=== PATIENT | male | born 1965 | race Caucasian/White ===

== ENCOUNTER 2017-02-27 09:15 | Emergency (ER) | payer MEDICARE ==
[~2017-02-27] VITALS: Ht 182.9 cm; Wt 155.1 kg
[~2017-02-27 09:15] MED LIST: ALBU90OI61 INH; ATOR10; ATOR40TA PO; Aspirin EC81 MG PO; BENZ100A PO; CEPH500 PO; CYCL10 PO; FAMO40 PO; GABA100 PO; GABA300 PO; GEMF600 PO; HYDACE5 PO; HYDCHL25 PO; IBUP800 PO; LISI20 PO; METF500 PO; METF500C; METO25ER PO; MORP15ER PO; MORP30 PO; MORP30ER PO; MORP60ER PO; NAPR500 PO; NITR.4SL SL; OXYC10TA19 PO; OXYC15ER PO; OXYC30 PO; OXYC5 PO; Oxycodone HCl20 M1 PO; Oxycontin20 MG PO; PANT40 PO; PRED20 PO; PREG25 PO; Percocet 5-3251 EACH PO; SULTRIDS PO; TIZANIDINE HCL4 MG PO; Vibramycin100 MG PO
[2017-02-27 10:09] LABS: BASOPHILS ABSOLUTE AUTO 0.01 K/mm3 (0.00-0.23); BASOPHILS PERCENT AUTO 0 % (0-2); EOSINOPHILS PERCENT AUTO 4 % (0-6); Hematocrit 45.1 % (37.0-53.0); IMMATURE GRAN ABSOLUTE AUTO 0.01 K/mm3 (0.00-0.10); IMMATURE GRAN PERCENT AUTO 0 % (0-1); LYMPHOCYTES ABSOLUTE AUTO 2.96 K/mm3 (0.84-5.20); LYMPHOCYTES PERCENT AUTO 38 % (21-46); MONOCYTES PERCENT AUTO 11 % (4-13); Mean Corpuscular HGB Conc 33.3 g/dL (31.5-36.5); Mean Corpuscular Volume 87 fL (80-100); NEUTROPHILS ABSOLUTE AUTO 3.69 K/mm3 (1.96-9.15); NEUTROPHILS PERCENT AUTO 47 % (41-73); Platelet Count 212 K/mm3 (150-400); RDW Coefficient Variation 13.7 % (11.7-14.2); RDW Standard Deviation 43.6 fL (35.1-46.3); Red Blood Cell Count 5.18 M/mm3 (4.30-5.90); White Blood Cell Count 7.87 K/mm3 (4.00-11.30)
[2017-02-27 10:33] LABS: Alanine Aminotransfer (ALT/SGP 418 U/L (12-78); Albumin, Blood 3.5 g/dL (3.4-5.0); Albumin/Globulin Ratio 0.8 (0.8-1.8); Alk Phos 97 U/L (50-136); Anion Gap 9 mmol/L (6-16); Aspartate Aminotrans (AST/SGOT 111 U/L (12-37); Bilirubin, Total 1.5 mg/dL (0.1-1.0); Blood Urea Nitrogen 16 mg/dL (8-24); Bun/Creatinine Ratio 18.3 (12.0-20.0); CO2, Blood 25 mmol/L (21-32); Calcium, Blood 8.6 mg/dL (8.5-10.1); Chloride, Blood 99 mmol/L (98-108); Creatinine, Blood 0.88 mg/dL (0.60-1.20); Globulin, Blood 4.2 g/dL (2.2-4.0); Glomerular Filtration Rate >60 (60-); Glucose, Blood 224 mg/dL (70-99); Potassium, Blood 3.8 mmol/L (3.5-5.5); Sodium, Blood 133 mmol/L (136-145); Total Protein, Blood 7.7 g/dL (6.4-8.2)
[2017-08-03] MEDS ORDERED: OXYC15ER PO (09:22)
[2017-08-03] MEDS ORDERED: IBUP800 PO (09:22)
[2017-08-03] MEDS ORDERED: Stool Softener100 MG PO (09:23)
[2017-08-03] MEDS ORDERED: PROM25S PR (09:23)
[2017-08-03] MEDS ORDERED: Cymbalta30 MG (09:23)
[2018-01-01] MEDS ORDERED: Roxicodone15 MG PO (16:31)
[2018-01-01] MEDS ORDERED: Metformin HCl500 MG PO (16:31)
[2018-01-01] MEDS ORDERED: Indomethacin50 MG PO (19:46)
== END 2017-02-27 13:03 | disposition home or self-care (01) ==
LOC: ER 09:15
PROVIDERS: Physician Assistant
DX: R11.2 Nausea with vomiting, unspecified (principal); K76.0 Fatty (change of) liver, not elsewhere classified; R63.0 Anorexia; R63.4 Abnormal weight loss; Z68.42 Body mass index [BMI] 45.0-49.9, adult; Z79.899 Other long term (current) drug therapy; Z79.84 Long term (current) use of oral hypoglycemic drugs; Z79.82 Long term (current) use of aspirin; I10 Essential (primary) hypertension; R73.03 Prediabetes; F17.220 Nicotine dependence, chewing tobacco, uncomplicated
CPT/HCPCS: 36415; 76700; 80053; 81000; 83690; 85025; 86704; 86708; 86803; 87340; 96360; 99283; J7030

== ENCOUNTER 2017-03-07 11:09 | Day surgery (SDC) | payer MEDICARE ==
[~2017-03-07] VITALS: Ht 182.9 cm; Wt 156.7 kg
[2017-08-03] MEDS ORDERED: IBUP800 PO (09:22)
[2017-08-03] MEDS ORDERED: OXYC15ER PO (09:22)
[2017-08-03] MEDS ORDERED: PROM25S PR (09:23)
[2017-08-03] MEDS ORDERED: Cymbalta30 MG (09:23)
[2017-08-03] MEDS ORDERED: Stool Softener100 MG PO (09:23)
[2018-01-01] MEDS ORDERED: Metformin HCl500 MG PO (16:31)
[2018-01-01] MEDS ORDERED: Roxicodone15 MG PO (16:31)
[2018-01-01] MEDS ORDERED: Indomethacin50 MG PO (19:46)
== END 2017-03-07 13:20 | disposition home or self-care (01) ==
LOC: ORSCSDS 11:09
DX: R10.13 Epigastric pain (principal); R63.4 Abnormal weight loss; R11.2 Nausea with vomiting, unspecified; K29.70 Gastritis, unspecified, without bleeding; K31.7 Polyp of stomach and duodenum; I10 Essential (primary) hypertension; E11.9 Type 2 diabetes mellitus without complications; I25.10 Atherosclerotic heart disease of native coronary artery without angina pectoris; E66.01 Morbid (severe) obesity due to excess calories; Z68.42 Body mass index [BMI] 45.0-49.9, adult; F17.220 Nicotine dependence, chewing tobacco, uncomplicated; Z79.899 Other long term (current) drug therapy
CPT/HCPCS: 82947; 88305; 88342; J2250

== ENCOUNTER 2017-04-21 10:55 | Day surgery (SDC) | payer MEDICARE ==
[~2017-04-21] VITALS: Ht 182.9 cm; Wt 149.2 kg
[2017-08-03] MEDS ORDERED: IBUP800 PO (09:22)
[2017-08-03] MEDS ORDERED: OXYC15ER PO (09:22)
[2017-08-03] MEDS ORDERED: PROM25S PR (09:23)
[2017-08-03] MEDS ORDERED: Cymbalta30 MG (09:23)
[2017-08-03] MEDS ORDERED: Stool Softener100 MG PO (09:23)
[2018-01-01] MEDS ORDERED: Metformin HCl500 MG PO (16:31)
[2018-01-01] MEDS ORDERED: Roxicodone15 MG PO (16:31)
[2018-01-01] MEDS ORDERED: Indomethacin50 MG PO (19:46)
== END 2017-04-21 14:00 | disposition home or self-care (01) ==
LOC: ORSCSDS 10:55
PROVIDERS: Internal Medicine Gastroenterology
PROC: 0DBK8ZX Excision of Ascending Colon, Via Natural or Artificial Opening Endoscopic, Diagnostic (ICD-10-PCS; principal; 2017-04-21 12:30)
PROC: 0DBP8ZX Excision of Rectum, Via Natural or Artificial Opening Endoscopic, Diagnostic (ICD-10-PCS; principal; 2017-04-21 12:30)
PROC: 0DBL8ZX Excision of Transverse Colon, Via Natural or Artificial Opening Endoscopic, Diagnostic (ICD-10-PCS; principal; 2017-04-21 12:30)
DX: R63.4 Abnormal weight loss (principal); K62.1 Rectal polyp; D12.8 Benign neoplasm of rectum; D12.3 Benign neoplasm of transverse colon; K63.5 Polyp of colon; R10.13 Epigastric pain; R11.2 Nausea with vomiting, unspecified; I10 Essential (primary) hypertension; E11.9 Type 2 diabetes mellitus without complications; E78.5 Hyperlipidemia, unspecified; I25.10 Atherosclerotic heart disease of native coronary artery without angina pectoris; F17.220 Nicotine dependence, chewing tobacco, uncomplicated; F32.9 Major depressive disorder, single episode, unspecified; Z79.4 Long term (current) use of insulin; Z79.899 Other long term (current) drug therapy; E66.01 Morbid (severe) obesity due to excess calories; Z68.42 Body mass index [BMI] 45.0-49.9, adult
CPT/HCPCS: 82947; 88305; J2250; J7120

== ENCOUNTER 2017-09-07 12:53 | Day surgery (SDC) | payer MEDICARE ==
[~2017-09-07] VITALS: Ht 182.9 cm; Wt 151.6 kg
[~2017-09-07 12:53] MED LIST changes: +Cymbalta30 MG; +PROM25S PR; +Stool Softener100 MG PO
== END 2017-09-07 15:55 | disposition home or self-care (01) ==
LOC: ORSCSDS 12:53
PROVIDERS: Internal Medicine Gastroenterology
PROC: 0DBP8ZX Excision of Rectum, Via Natural or Artificial Opening Endoscopic, Diagnostic (ICD-10-PCS; principal; 2017-09-07 14:30)
PROC: 3E0H8GC Introduction of Other Therapeutic Substance into Lower GI, Via Natural or Artificial Opening Endoscopic (ICD-10-PCS; principal; 2017-09-07 14:30)
DX: C20 Malignant neoplasm of rectum (principal); D12.8 Benign neoplasm of rectum; Z86.010 Personal history of colon polyps; I10 Essential (primary) hypertension; Z79.899 Other long term (current) drug therapy; Z79.82 Long term (current) use of aspirin; F17.220 Nicotine dependence, chewing tobacco, uncomplicated
CPT/HCPCS: 82947; 88305; J2250

== ENCOUNTER 2017-09-11 20:20 | Observation (INO) | payer MEDICARE ==
[~2017-09-11] VITALS: Ht 182.9 cm; Wt 155.1 kg
[2017-09-11 20:56] LABS: BASOPHILS ABSOLUTE AUTO 0.02 K/mm3 (0.00-0.23); BASOPHILS PERCENT AUTO 0 % (0-2); EOSINOPHILS ABSOLUTE AUTO 0.16 K/mm3 (0.00-0.68); EOSINOPHILS PERCENT AUTO 2 % (0-6); Hematocrit 43.3 % (37.0-53.0); Hemoglobin 14.5 g/dL (13.5-17.5); IMMATURE GRAN ABSOLUTE AUTO 0.02 K/mm3 (0.00-0.10); IMMATURE GRAN PERCENT AUTO 0 % (0-1); LYMPHOCYTES ABSOLUTE AUTO 3.78 K/mm3 (0.84-5.20); LYMPHOCYTES PERCENT AUTO 49 % (21-46); MONOCYTES ABSOLUTE AUTO 0.73 K/mm3 (0.16-1.47); MONOCYTES PERCENT AUTO 9 % (4-13); Mean Corpuscular HGB 29.6 pg (26.0-34.0); Mean Corpuscular HGB Conc 33.5 g/dL (31.5-36.5); Mean Corpuscular Volume 88 fL (80-100); Mean Platelet Volume 10.8 fL (9.1-12.4); NEUTROPHILS ABSOLUTE AUTO 3.03 K/mm3 (1.96-9.15); NEUTROPHILS PERCENT AUTO 39 % (41-73); Platelet Count 219 K/mm3 (150-400); RDW Coefficient Variation 12.3 % (11.7-14.2); White Blood Cell Count 7.74 K/mm3 (4.00-11.30)
[2017-09-11 21:18] LABS: Alanine Aminotransfer (ALT/SGP 35 U/L (12-78); Albumin, Blood 3.7 g/dL (3.4-5.0); Albumin/Globulin Ratio 1.1 (0.8-1.8); Alk Phos 63 U/L (50-136); Anion Gap 10 mmol/L (6-16); Aspartate Aminotrans (AST/SGOT 21 U/L (12-37); Bilirubin, Total 0.3 mg/dL (0.1-1.0); Blood Urea Nitrogen 12 mg/dL (8-24); Bun/Creatinine Ratio 13.3 (12.0-20.0); CO2, Blood 25 mmol/L (21-32); Calcium, Blood 8.3 mg/dL (8.5-10.1); Chloride, Blood 105 mmol/L (98-108); Globulin, Blood 3.5 g/dL (2.2-4.0); Glomerular Filtration Rate >60 (60-); Glucose, Blood 204 mg/dL (70-99); Potassium, Blood 4.1 mmol/L (3.5-5.5); Sodium, Blood 140 mmol/L (136-145); Total Protein, Blood 7.2 g/dL (6.4-8.2); Troponin I 0.023 ng/mL (0.000-0.040)
[2017-09-12 02:41] LABS: Troponin I 0.024 ng/mL (0.000-0.040)
[2017-09-12 05:48] LABS: Hematocrit 42.7 % (37.0-53.0); Hemoglobin 14.1 g/dL (13.5-17.5); Mean Corpuscular HGB 29.3 pg (26.0-34.0); Mean Corpuscular Volume 89 fL (80-100); Mean Platelet Volume 11.2 fL (9.1-12.4); Platelet Count 212 K/mm3 (150-400); RDW Coefficient Variation 12.5 % (11.7-14.2); RDW Standard Deviation 40.6 fL (35.1-46.3); Red Blood Cell Count 4.81 M/mm3 (4.30-5.90); White Blood Cell Count 7.28 K/mm3 (4.00-11.30)
[2017-09-12 06:12] LABS: Alanine Aminotransfer (ALT/SGP 35 U/L (12-78); Albumin, Blood 3.6 g/dL (3.4-5.0); Albumin/Globulin Ratio 1.1 (0.8-1.8); Alk Phos 55 U/L (50-136); Anion Gap 8 mmol/L (6-16); Aspartate Aminotrans (AST/SGOT 18 U/L (12-37); Bilirubin, Total 0.6 mg/dL (0.1-1.0); Blood Urea Nitrogen 12 mg/dL (8-24); Bun/Creatinine Ratio 12.5 (12.0-20.0); CO2, Blood 26 mmol/L (21-32); Calcium, Blood 8.8 mg/dL (8.5-10.1); Chloride, Blood 106 mmol/L (98-108); Creatinine, Blood 0.96 mg/dL (0.60-1.20); Globulin, Blood 3.4 g/dL (2.2-4.0); Glomerular Filtration Rate >60 (60-); Glucose, Blood 119 mg/dL (70-99); Potassium, Blood 4.1 mmol/L (3.5-5.5); Sodium, Blood 140 mmol/L (136-145)
[2017-09-12 10:38] LABS: CPK Creatine Kinase 114 U/L (39-308); Troponin I <0.015 ng/mL (0.000-0.040)
[2017-09-13] MEDS ORDERED: NITR.4SL SL (11:23)
[2017-09-13] MEDS ORDERED: Isosorbide Mono30 MG PO (11:25)
== END 2017-09-13 12:04 | disposition home or self-care (01) ==
LOC: ER 20:20 → ERHOLD 20:21 → ICUE 20:21
PROVIDERS: Emergency Medicine; Internal Medicine
DX: R07.9 Chest pain, unspecified (principal); E11.9 Type 2 diabetes mellitus without complications; E66.9 Obesity, unspecified; I10 Essential (primary) hypertension; E78.5 Hyperlipidemia, unspecified; M54.9 Dorsalgia, unspecified; Z79.84 Long term (current) use of oral hypoglycemic drugs; Z79.82 Long term (current) use of aspirin; Z79.1 Long term (current) use of non-steroidal anti-inflammatories (NSAID); Z79.899 Other long term (current) drug therapy
CPT/HCPCS: 36415; 71046; 80053; 82550; 82947; 83880; 84484; 85025; 85027; 93005; 93010; 93454; 96360; 96361; 96372; 99152; 99153; 99285-25; C1769; C1894; G0378; J1644; J1650; J2250; J3010; J7030; Q9967

== ENCOUNTER 2018-03-02 11:49 | Day surgery (SDC) | payer MEDICARE ==
[~2018-03-02] VITALS: Ht 182.9 cm; Wt 157.5 kg
[~2018-03-02 11:49] MED LIST changes: +DOCU100 PO; +Indomethacin50 MG PO; +Isosorbide Mono30 MG PO; +Metformin HCl500 MG PO; +ROSU10TA PO; +Roxicodone15 MG PO
== END 2018-03-02 14:39 | disposition home or self-care (01) ==
LOC: ORSCSDS 11:49
PROVIDERS: Internal Medicine Gastroenterology
PROC: 0DBP8ZX Excision of Rectum, Via Natural or Artificial Opening Endoscopic, Diagnostic (ICD-10-PCS; principal; 2018-03-02 13:00)
PROC: 0DBL8ZX Excision of Transverse Colon, Via Natural or Artificial Opening Endoscopic, Diagnostic (ICD-10-PCS; principal; 2018-03-02 13:00)
PROC: 0D5P8ZZ Destruction of Rectum, Via Natural or Artificial Opening Endoscopic (ICD-10-PCS; principal; 2018-03-02 13:00)
PROC: 0DBK8ZX Excision of Ascending Colon, Via Natural or Artificial Opening Endoscopic, Diagnostic (ICD-10-PCS; principal; 2018-03-02 13:00)
DX: Z85.048 Personal history of other malignant neoplasm of rectum, rectosigmoid junction, and anus (principal); Z86.010 Personal history of colon polyps; D12.3 Benign neoplasm of transverse colon; K63.5 Polyp of colon; K62.1 Rectal polyp; K57.30 Diverticulosis of large intestine without perforation or abscess without bleeding; K64.8 Other hemorrhoids; Q27.33 Arteriovenous malformation of digestive system vessel; I10 Essential (primary) hypertension; I25.10 Atherosclerotic heart disease of native coronary artery without angina pectoris; F17.220 Nicotine dependence, chewing tobacco, uncomplicated
CPT/HCPCS: 82947; 88305; J2250; J7120

== ENCOUNTER 2018-09-14 11:26 | Day surgery (SDC) | payer MEDICARE ==
[~2018-09-14] VITALS: Ht 182.9 cm; Wt 162.5 kg
[2018-09-14] MEDS ORDERED: ATOR20 (12:17)
== END 2018-09-14 14:56 | disposition home or self-care (01) ==
LOC: ORSCSDS 11:26
PROVIDERS: Internal Medicine Gastroenterology
PROC: 0DBL8ZX Excision of Transverse Colon, Via Natural or Artificial Opening Endoscopic, Diagnostic (ICD-10-PCS; principal; 2018-09-14 13:00)
PROC: 0DBN8ZX Excision of Sigmoid Colon, Via Natural or Artificial Opening Endoscopic, Diagnostic (ICD-10-PCS; principal; 2018-09-14 13:00)
PROC: 0DBP8ZX Excision of Rectum, Via Natural or Artificial Opening Endoscopic, Diagnostic (ICD-10-PCS; principal; 2018-09-14 13:00)
DX: Z85.048 Personal history of other malignant neoplasm of rectum, rectosigmoid junction, and anus (principal); D12.3 Benign neoplasm of transverse colon; D12.5 Benign neoplasm of sigmoid colon; K62.1 Rectal polyp; K57.30 Diverticulosis of large intestine without perforation or abscess without bleeding; K64.8 Other hemorrhoids; Z86.010 Personal history of colon polyps; I10 Essential (primary) hypertension; I25.10 Atherosclerotic heart disease of native coronary artery without angina pectoris; E11.9 Type 2 diabetes mellitus without complications; G47.33 Obstructive sleep apnea (adult) (pediatric); Z79.84 Long term (current) use of oral hypoglycemic drugs; Z79.899 Other long term (current) drug therapy; F17.220 Nicotine dependence, chewing tobacco, uncomplicated
CPT/HCPCS: 82947; 88305; J2704; J7120

== ENCOUNTER 2018-10-01 12:43 | Emergency (ER) | payer MEDICARE ==
[~2018-10-01] VITALS: Ht 182.9 cm; Wt 117.9 kg
[~2018-10-01 12:43] MED LIST changes: +ATOR20
[2018-10-01 13:19] LABS: BASOPHILS ABSOLUTE AUTO 0.03 K/mm3 (0.00-0.23); BASOPHILS PERCENT AUTO 0 % (0-2); EOSINOPHILS ABSOLUTE AUTO 0.16 K/mm3 (0.00-0.68); EOSINOPHILS PERCENT AUTO 2 % (0-6); Hematocrit 45.5 % (37.0-53.0); Hemoglobin 15.2 g/dL (13.5-17.5); IMMATURE GRAN ABSOLUTE AUTO 0.03 K/mm3 (0.00-0.10); IMMATURE GRAN PERCENT AUTO 0 % (0-1); LYMPHOCYTES PERCENT AUTO 46 % (21-46); MONOCYTES ABSOLUTE AUTO 1.03 K/mm3 (0.16-1.47); MONOCYTES PERCENT AUTO 12 % (4-13); Mean Corpuscular HGB 30.3 pg (26.0-34.0); Mean Corpuscular HGB Conc 33.4 g/dL (31.5-36.5); Mean Corpuscular Volume 91 fL (80-100); Mean Platelet Volume 10.9 fL (9.1-12.4); NEUTROPHILS ABSOLUTE AUTO 3.59 K/mm3 (1.96-9.15); NEUTROPHILS PERCENT AUTO 40 % (41-73); Platelet Count 229 K/mm3 (150-400); RDW Coefficient Variation 13.2 % (11.7-14.2); RDW Standard Deviation 43.8 fL (35.1-46.3); Red Blood Cell Count 5.01 M/mm3 (4.30-5.90); White Blood Cell Count 8.94 K/mm3 (4.00-11.30)
[2018-10-01 13:36] LABS: Alanine Aminotransfer (ALT/SGP 54 U/L (12-78); Albumin/Globulin Ratio 1.1 (0.8-1.8); Alk Phos 65 U/L (50-136); Anion Gap 5 mmol/L (6-16); Aspartate Aminotrans (AST/SGOT 25 U/L (12-37); Bilirubin, Total 0.3 mg/dL (0.1-1.0); Blood Urea Nitrogen 15 mg/dL (8-24); Bun/Creatinine Ratio 16.9 (12.0-20.0); CO2, Blood 29 mmol/L (21-32); Calcium, Blood 8.8 mg/dL (8.5-10.1); Chloride, Blood 104 mmol/L (98-108); Creatinine, Blood 0.89 mg/dL (0.60-1.20); Globulin, Blood 3.6 g/dL (2.2-4.0); Glomerular Filtration Rate >60 (60-); Glucose, Blood 98 mg/dL (70-99); Potassium, Blood 4.1 mmol/L (3.5-5.5); Sodium, Blood 138 mmol/L (136-145); Total Protein, Blood 7.6 g/dL (6.4-8.2); Troponin I <0.015 ng/mL (0.000-0.040)
== END 2018-10-01 14:16 | disposition home or self-care (01) ==
LOC: ER 12:43
PROVIDERS: Physician Assistant
DX: R07.9 Chest pain, unspecified (principal); Z79.899 Other long term (current) drug therapy; Z79.82 Long term (current) use of aspirin; Z79.891 Long term (current) use of opiate analgesic; Z79.84 Long term (current) use of oral hypoglycemic drugs; I10 Essential (primary) hypertension; E11.9 Type 2 diabetes mellitus without complications; E78.5 Hyperlipidemia, unspecified
CPT/HCPCS: 36415; 71046; 80053; 83735; 83880; 84484; 85025; 93005; 93010; 99285-25

== ENCOUNTER → 2018-12-25 | Outpatient (CLI) | payer MEDICARE | END | disposition home or self-care (01) | LOC: LAB SHORT 08:01 → PLD 08:01 | DX: L85.9 Epidermal thickening, unspecified (principal) | CPT/HCPCS: 88305; 88312 ==

== ENCOUNTER 2020-05-19 20:27 | Observation (INO) | payer MEDICARE ==
[~2020-05-19] VITALS: Ht 182.9 cm; Wt 170.6 kg
[~2020-05-19 20:27] MED LIST changes: +FURO20 PO; +POTCHL20ER PO
[2020-05-19 21:03] LABS: BASOPHILS ABSOLUTE AUTO 0.04 K/mm3 (0.00-0.23); BASOPHILS PERCENT AUTO 0 % (0-2); EOSINOPHILS ABSOLUTE AUTO 0.15 K/mm3 (0.00-0.68); EOSINOPHILS PERCENT AUTO 1 % (0-6); Hematocrit 45.4 % (37.0-53.0); Hemoglobin 15.2 g/dL (13.5-17.5); IMMATURE GRAN ABSOLUTE AUTO 0.09 K/mm3 (0.00-0.10); IMMATURE GRAN PERCENT AUTO 1 % (0-1); LYMPHOCYTES ABSOLUTE AUTO 5.79 K/mm3 (0.84-5.20); LYMPHOCYTES PERCENT AUTO 44 % (21-46); MONOCYTES ABSOLUTE AUTO 1.14 K/mm3 (0.16-1.47); MONOCYTES PERCENT AUTO 9 % (4-13); Mean Corpuscular HGB 29.8 pg (26.0-34.0); Mean Corpuscular HGB Conc 33.5 g/dL (31.5-36.5); Mean Corpuscular Volume 89 fL (80-100); Mean Platelet Volume 11.3 fL (9.1-12.4); NEUTROPHILS ABSOLUTE AUTO 6.06 K/mm3 (1.96-9.15); NEUTROPHILS PERCENT AUTO 46 % (41-73); Platelet Count 307 K/mm3 (150-400); RDW Coefficient Variation 12.5 % (11.7-14.2); RDW Standard Deviation 40.8 fL (35.1-46.3); White Blood Cell Count 13.27 K/mm3 (4.00-11.30)
[2020-05-19 21:20] LABS: International Normalized Ratio 1.01; Prothrombin Time Results 10.8 Sec (9.7-11.5)
[2020-05-19 21:23] LABS: Alanine Aminotransfer (ALT/SGP 59 U/L (12-78); Albumin, Blood 3.8 g/dL (3.4-5.0); Alk Phos 73 U/L (50-136); Anion Gap 8 mmol/L (6-16); Aspartate Aminotrans (AST/SGOT 31 U/L (12-37); Bilirubin, Total 0.3 mg/dL (0.1-1.0); Blood Urea Nitrogen 19 mg/dL (8-24); Bun/Creatinine Ratio 15.4 (12.0-20.0); CO2, Blood 26 mmol/L (21-32); Calcium, Blood 8.6 mg/dL (8.5-10.1); Chloride, Blood 106 mmol/L (98-108); Creatinine, Blood 1.23 mg/dL (0.60-1.20); Globulin, Blood 3.7 g/dL (2.2-4.0); Glomerular Filtration Rate >60 (60-); Glucose, Blood 151 mg/dL (70-99); Sodium, Blood 140 mmol/L (136-145); Total Protein, Blood 7.5 g/dL (6.4-8.2); Troponin I 0.144 ng/mL (0.000-0.040)
[2020-05-19] MEDS ORDERED: ZESTRIL40 M1 PO (21:41)
[2020-05-19 23:23] LABS: CHOL/HDL RATIO 8.3; Cholesterol 232 mg/dL (50-200); HDL Cholesterol 28 mg/dL (>39); LDL/HDL RATIO Unable to Calculate; Low Density Lipoprotein Chol Unable to Calculate mg/dL (0-110); Triglycerides 686 mg/dL (30-160); Very Low Density Lipoprot Chol Unable to Calculate mg/dL (6-32)
--- NOTE | 2020-05-20 01:37 | NUR ---
ASSUMED CARE OF PATIENT AT APPROXIMATELY 0015 FROM ED SHEILA STAUFFER. PATIENT ARRIVED TO UNIT VIA STRETCHER; ONE ASSIST FROM ED TO PCU STRETCHER. PATIENT ALERT AND ORIENTED; HEPARIN GTT PER ORDER. PATIENT REPORTS CHRONIC PAIN IN BACK; PATIENT REPORTS HE HAS TENS UNIT IN BACK; PATIENT REPORTS HE HAS PAIN MEDICATION IN LOCKED CONTAINER; ESCORTED PAIN MEDICATION TO PHARMACY AND SLIP PLACED IN CHART. MEDICATED PER EMAR FOR PAIN. ADMISSION COMPLETE. NSR ON TELE; OXYGEN SATURATION ABOVE 90% ON ROOM AIR; REFUSES HOSPITAL CPAP; REFUSAL FORM SIGNED AND PLACED IN CHART. PATIENT DENIES CP/PRESSURE, NUMBNESS, TINGLING, DIZZINESS OR NAUSEA. PATIENT CURRENTLY RESTING IN BED; CALL LIGHT IN REACH; BED IN LOWEST POSISTION
--- NOTE | 2020-05-20 06:04 | NUR ---
PATIENT SLEPT FOR ABOUT TWO HOURS LAST NIGHT OFF AND ON; SNORING COULD BE HEARD IN HALLWAY. VSS. NO ACUTE CHANGES TO REPORT. TROPONIN TRENDING DOWN.
[2020-05-20 09:20] LABS: BASOPHILS ABSOLUTE AUTO 0.03 K/mm3 (0.00-0.23); BASOPHILS PERCENT AUTO 0 % (0-2); EOSINOPHILS ABSOLUTE AUTO 0.14 K/mm3 (0.00-0.68); EOSINOPHILS PERCENT AUTO 2 % (0-6); Hematocrit 41.7 % (37.0-53.0); Hemoglobin 13.5 g/dL (13.5-17.5); IMMATURE GRAN ABSOLUTE AUTO 0.03 K/mm3 (0.00-0.10); IMMATURE GRAN PERCENT AUTO 0 % (0-1); LYMPHOCYTES ABSOLUTE AUTO 4.18 K/mm3 (0.84-5.20); LYMPHOCYTES PERCENT AUTO 58 % (21-46); MONOCYTES ABSOLUTE AUTO 0.59 K/mm3 (0.16-1.47); MONOCYTES PERCENT AUTO 8 % (4-13); Mean Corpuscular HGB 29.5 pg (26.0-34.0); Mean Corpuscular HGB Conc 32.4 g/dL (31.5-36.5); Mean Corpuscular Volume 91 fL (80-100); Mean Platelet Volume 11.1 fL (9.1-12.4); NEUTROPHILS ABSOLUTE AUTO 2.29 K/mm3 (1.96-9.15); NEUTROPHILS PERCENT AUTO 32 % (41-73); Platelet Count 198 K/mm3 (150-400); RDW Coefficient Variation 12.7 % (11.7-14.2); RDW Standard Deviation 42.3 fL (35.1-46.3); Red Blood Cell Count 4.57 M/mm3 (4.30-5.90); White Blood Cell Count 7.26 K/mm3 (4.00-11.30)
[2020-05-20 09:31] LABS: Anion Gap 7 mmol/L (6-16); Blood Urea Nitrogen 14 mg/dL (8-24); Bun/Creatinine Ratio 16.2 (12.0-20.0); CO2, Blood 26 mmol/L (21-32); Calcium, Blood 8.1 mg/dL (8.5-10.1); Chloride, Blood 106 mmol/L (98-108); Creatinine, Blood 0.87 mg/dL (0.60-1.20); Glomerular Filtration Rate >60 (60-); Glucose, Blood 154 mg/dL (70-99); Potassium, Blood 3.8 mmol/L (3.5-5.5); Sodium, Blood 139 mmol/L (136-145)
--- NOTE | 2020-05-20 18:15 | NUR ---
SHIFT SUMMARY PT A&Ox4; CALM AND COOPERATIVE WITH CARE. PT RESTING IN BED, UP SBA TO BATHROOM. PT REPORTS CHRONIC BACK PAIN, MEDICATED PER EMAR. PT DENIES SOB, CHEST PAIN, [place] AND DIZZINESS. PT REMAINS SINUS RHYTHM T/O SHIFT, NO REPORTS OF EVENTS FROM TELE. CONSTRUCTION MILLWRIGHT AT BEDSIDE THIS AFTERNOON. EDUCATED PT ON XARELTO. VSS. NO OTHER ACUTE CHAGNES NOTED DURING SHIFT. WILL CONTINUE TO MONITOR UNITL REPORT GIVEN TO ONCOMING RN.
--- NOTE | 2020-05-21 01:19 | NUR ---
ASSUMED CARE OF PATIENT AT APPROXIMATELY 1910 FROM DOMINIQUE Fletcher RN. PATIENT ALERT AND ORIENTED; INDEPENDENT TO BATHROOM. PATIENT REPORTS CHRONIC PAIN IN BACK; PATIENT REPORTS HE HAS TENS UNIT IN BACK; MEDICATED PER EMAR. NSR ON TELE; OXYGEN SATURATION ABOVE 90% ON ROOM AIR; REFUSES HOSPITAL CPAP. PATIENT DENIES CP/PRESSURE, NUMBNESS, TINGLING, DIZZINESS OR NAUSEA. PATIENT CURRENTLY RESTING IN BED; CALL LIGHT IN REACH; BED IN LOWEST POSISTION
[2020-05-21 04:02] LABS: BASOPHILS ABSOLUTE AUTO 0.01 K/mm3 (0.00-0.23); BASOPHILS PERCENT AUTO 0 % (0-2); EOSINOPHILS ABSOLUTE AUTO 0.12 K/mm3 (0.00-0.68); EOSINOPHILS PERCENT AUTO 2 % (0-6); Hematocrit 40.9 % (37.0-53.0); Hemoglobin 13.6 g/dL (13.5-17.5); IMMATURE GRAN ABSOLUTE AUTO 0.04 K/mm3 (0.00-0.10); IMMATURE GRAN PERCENT AUTO 1 % (0-1); LYMPHOCYTES ABSOLUTE AUTO 3.64 K/mm3 (0.84-5.20); LYMPHOCYTES PERCENT AUTO 47 % (21-46); MONOCYTES ABSOLUTE AUTO 0.75 K/mm3 (0.16-1.47); MONOCYTES PERCENT AUTO 10 % (4-13); Mean Corpuscular HGB 30.2 pg (26.0-34.0); Mean Corpuscular HGB Conc 33.3 g/dL (31.5-36.5); Mean Corpuscular Volume 91 fL (80-100); NEUTROPHILS ABSOLUTE AUTO 3.16 K/mm3 (1.96-9.15); NEUTROPHILS PERCENT AUTO 41 % (41-73); Platelet Count 189 K/mm3 (150-400); RDW Coefficient Variation 12.7 % (11.7-14.2); RDW Standard Deviation 41.6 fL (35.1-46.3); Red Blood Cell Count 4.51 M/mm3 (4.30-5.90); White Blood Cell Count 7.72 K/mm3 (4.00-11.30)
[2020-05-21 04:24] LABS: Alanine Aminotransfer (ALT/SGP 50 U/L (12-78); Albumin, Blood 3.2 g/dL (3.4-5.0); Alk Phos 52 U/L (50-136); Anion Gap 5 mmol/L (6-16); Aspartate Aminotrans (AST/SGOT 18 U/L (12-37); Bilirubin, Total 0.8 mg/dL (0.1-1.0); Blood Urea Nitrogen 15 mg/dL (8-24); CO2, Blood 31 mmol/L (21-32); Calcium, Blood 8.6 mg/dL (8.5-10.1); Chloride, Blood 103 mmol/L (98-108); Creatinine, Blood 0.94 mg/dL (0.60-1.20); Globulin, Blood 3.3 g/dL (2.2-4.0); Glomerular Filtration Rate >60 (60-); Glucose, Blood 162 mg/dL (70-99); Potassium, Blood 3.9 mmol/L (3.5-5.5); Sodium, Blood 139 mmol/L (136-145); Total Protein, Blood 6.5 g/dL (6.4-8.2)
--- NOTE | 2020-05-21 06:00 | NUR ---
PATIENT SLEPT ABOUT SIX HOURS OFF AND LAST NIGHT. VSS. NO ACUTE CHANGES TO REPORT.
[2020-05-21] MEDS ORDERED: ATOR40TA PO (09:37)
[2020-05-21] MEDS ORDERED: METO25 PO (09:38)
[2020-05-21] MEDS ORDERED: XARELTO20 MG PO (09:38)
--- NOTE | 2020-05-21 10:14 | NUR ---
Call to Dr. Martinez's office to ask at pt's request if atorvastatin RX can be changed to Pravastatin. pt states that he had muscle cramping with atorvastatin in past, and was taken off the lipitor by Dr. Soliman. States his brother in law also had the same adverse effect from atorvastatin, but that he reports pravastatin has not caused this for his brother in law, so he would like to try that. Message left on her cell number as clinic was too busy to take a message and the scratcher tender is persently unavailable.
== END 2020-05-21 11:25 | disposition home or self-care (01) ==
LOC: ER 20:27 → PCU 20:28
PROVIDERS: Emergency Medicine; Internal Medicine; Physician Assistant; ADMIT Family Medicine
DX: I48.0 Paroxysmal atrial fibrillation (principal); I25.10 Atherosclerotic heart disease of native coronary artery without angina pectoris; I21.4 Non-ST elevation (NSTEMI) myocardial infarction; I11.0 Hypertensive heart disease with heart failure; I50.31 Acute diastolic (congestive) heart failure; E78.5 Hyperlipidemia, unspecified; E11.9 Type 2 diabetes mellitus without complications; N17.9 Acute kidney failure, unspecified; D72.829 Elevated white blood cell count, unspecified; I71.2 Thoracic aortic aneurysm, without rupture; I70.0 Atherosclerosis of aorta; G47.33 Obstructive sleep apnea (adult) (pediatric); M54.5 Low back pain; G89.29 Other chronic pain; E66.01 Morbid (severe) obesity due to excess calories; Z79.82 Long term (current) use of aspirin; Z79.891 Long term (current) use of opiate analgesic; Z85.048 Personal history of other malignant neoplasm of rectum, rectosigmoid junction, and anus
CPT/HCPCS: 36415; 71046; 80048; 80053; 80061; 82947; 83735; 83880; 84443; 84484; 85025; 85610; 85730; 93005; 93010; 96361; 96365; 96376; 99285-25; A9270; C8929; G0378; J1644; J1815; J1940; J7030; Q9957

== ENCOUNTER 2020-06-13 15:35 | Emergency (ER) | payer MEDICARE ==
[~2020-06-13] VITALS: Ht 182.9 cm; Wt 163.3 kg
[~2020-06-13 15:35] MED LIST changes: +METO25 PO; +XARELTO20 MG PO; +ZESTRIL40 M1 PO
[2020-06-13] MEDS ORDERED: LIDO700A20 TOP (17:29)
[2020-06-13] MEDS ORDERED: VALACYCLOVIR1000 MG PO (17:29)
[2020-06-13] MEDS ORDERED: Percocet 5-3251 EACH PO (17:29)
== END 2020-06-13 19:03 | disposition other institution (70) ==
LOC: ER 15:35
DX: B02.9 Zoster without complications (principal); I82.621 Acute embolism and thrombosis of deep veins of right upper extremity; I10 Essential (primary) hypertension; E11.9 Type 2 diabetes mellitus without complications; E78.5 Hyperlipidemia, unspecified; F17.220 Nicotine dependence, chewing tobacco, uncomplicated; Z79.01 Long term (current) use of anticoagulants; Z79.899 Other long term (current) drug therapy
CPT/HCPCS: 93971; 99283-25; A9270

== ENCOUNTER 2020-10-28 02:11 | Day surgery (SDC) | payer MEDICARE ==
[~2020-10-28 02:11] MED LIST changes: +LIDO700A20 TOP; +VALACYCLOVIR1000 MG PO
[2020-10-28] MEDS ORDERED: ALKA-SELTZER P1 EA19 PO (08:21)
[2020-10-28] MEDS ORDERED: GUAI600T33 PO (08:21)
[2020-10-28] MEDS ORDERED: ALBU90OI INH (08:22)
[2020-10-28] MEDS ORDERED: THERA-D2000 UNIT PO (08:22)
[2020-10-28] MEDS ORDERED: ASCO500 PO (08:22)
--- NOTE | 2020-10-28 10:10 | NUR ---
DISCHARGE PT WAS MONITORED x 1 HOUR POST INFUSION. NO CHANGES FROM BASELINE. ESCORTED OUT VIA W/C.
== END 2020-10-28 10:10 | disposition home or self-care (01) ==
LOC: ATC 02:11
DX: U07.1 COVID-19 (principal); I48.91 Unspecified atrial fibrillation; E11.59 Type 2 diabetes mellitus with other circulatory complications; M17.11 Unilateral primary osteoarthritis, right knee; I10 Essential (primary) hypertension; I25.10 Atherosclerotic heart disease of native coronary artery without angina pectoris; F17.220 Nicotine dependence, chewing tobacco, uncomplicated; E78.5 Hyperlipidemia, unspecified; E66.01 Morbid (severe) obesity due to excess calories; Z68.42 Body mass index [BMI] 45.0-49.9, adult; Z85.038 Personal history of other malignant neoplasm of large intestine; Z79.84 Long term (current) use of oral hypoglycemic drugs
CPT/HCPCS: 96365; Q0243

== ENCOUNTER 2022-05-23 17:14 | Emergency (ER) | payer MEDICARE ==
[~2022-05-23] VITALS: Ht 190.5 cm; Wt 156.0 kg
[~2022-05-23 17:14] MED LIST changes: +ALBU90OI INH; +ALKA-SELTZER P1 EA19 PO; +ASCO500 PO; +GUAI600T33 PO; +THERA-D2000 UNIT PO
[2022-05-23 22:28] LABS: Albumin, Blood 3.6 g/dL (3.4-5.0); BASOPHILS ABSOLUTE AUTO 0.02 K/mm3 (0.00-0.23); BASOPHILS PERCENT AUTO 0 % (0-2); Bilirubin, Total 0.5 mg/dL (0.1-1.0); Calcium, Blood 8.7 mg/dL (8.5-10.1); EOSINOPHILS ABSOLUTE AUTO 0.15 K/mm3 (0.00-0.68); EOSINOPHILS PERCENT AUTO 2 % (0-6); Globulin, Blood 3.6 g/dL (2.2-4.0); Hematocrit 43.5 % (37.0-53.0); Hemoglobin 15.2 g/dL (13.5-17.5); IMMATURE GRAN ABSOLUTE AUTO 0.04 K/mm3 (0.00-0.10); IMMATURE GRAN PERCENT AUTO 1 % (0-1); LYMPHOCYTES ABSOLUTE AUTO 3.75 K/mm3 (0.84-5.20); LYMPHOCYTES PERCENT AUTO 45 % (21-46); MONOCYTES ABSOLUTE AUTO 0.67 K/mm3 (0.16-1.47); MONOCYTES PERCENT AUTO 8 % (4-13); Mean Corpuscular HGB 29.6 pg (26.0-34.0); Mean Corpuscular HGB Conc 34.9 g/dL (31.5-36.5); Mean Corpuscular Volume 85 fL (80-100); Mean Platelet Volume 12.2 fL (9.1-12.4); NEUTROPHILS ABSOLUTE AUTO 3.69 K/mm3 (1.96-9.15); NEUTROPHILS PERCENT AUTO 44 % (41-73); Platelet Count 216 K/mm3 (150-400); Potassium, Blood 4.3 mmol/L (3.5-5.5); RDW Coefficient Variation 11.9 % (11.7-14.2); RDW Standard Deviation 36.7 fL (35.1-46.3); Red Blood Cell Count 5.13 M/mm3 (4.30-5.90); Total Protein, Blood 7.2 g/dL (6.4-8.2); White Blood Cell Count 8.32 K/mm3 (4.00-11.30)
== END 2022-05-23 21:24 | disposition home or self-care (01) ==
LOC: ER 17:14
PROVIDERS: Physician Assistant
DX: E11.65 Type 2 diabetes mellitus with hyperglycemia (principal); I10 Essential (primary) hypertension; G47.33 Obstructive sleep apnea (adult) (pediatric); E78.5 Hyperlipidemia, unspecified; F17.220 Nicotine dependence, chewing tobacco, uncomplicated; Z79.899 Other long term (current) drug therapy; Z79.84 Long term (current) use of oral hypoglycemic drugs; Z79.01 Long term (current) use of anticoagulants
CPT/HCPCS: 36415; 80053; 82947; 83690; 85025; J1815; J7030

== ENCOUNTER 2022-05-26 14:44 | Emergency (ER) | payer MEDICARE ==
[~2022-05-26] VITALS: Ht 182.9 cm; Wt 156.0 kg
[2022-05-26 15:18] LABS: PCO2 Venous 44.8 mmHg (38-42); pH Blood Venous 7.35 (7.34-7.37)
[2022-05-26 15:19] LABS: Base Excess Venous -0.9 mmol/L; Bicarbonate Venous 23.3 mmol/L (24.0-30.0)
[2022-05-26 15:20] LABS: BASOPHILS ABSOLUTE AUTO 0.04 K/mm3 (0.00-0.23); BASOPHILS PERCENT AUTO 1 % (0-2); EOSINOPHILS ABSOLUTE AUTO 0.16 K/mm3 (0.00-0.68); EOSINOPHILS PERCENT AUTO 2 % (0-6); Hematocrit 43.9 % (37.0-53.0); Hemoglobin 14.9 g/dL (13.5-17.5); IMMATURE GRAN ABSOLUTE AUTO 0.05 K/mm3 (0.00-0.10); IMMATURE GRAN PERCENT AUTO 1 % (0-1); LYMPHOCYTES ABSOLUTE AUTO 4.08 K/mm3 (0.84-5.20); LYMPHOCYTES PERCENT AUTO 47 % (21-46); MONOCYTES ABSOLUTE AUTO 0.81 K/mm3 (0.16-1.47); MONOCYTES PERCENT AUTO 9 % (4-13); Mean Corpuscular HGB 29.2 pg (26.0-34.0); Mean Corpuscular HGB Conc 33.9 g/dL (31.5-36.5); Mean Corpuscular Volume 86 fL (80-100); Mean Platelet Volume 11.8 fL (9.1-12.4); NEUTROPHILS ABSOLUTE AUTO 3.55 K/mm3 (1.96-9.15); NEUTROPHILS PERCENT AUTO 41 % (41-73); Platelet Count 243 K/mm3 (150-400); RDW Coefficient Variation 12.2 % (11.7-14.2); RDW Standard Deviation 38.5 fL (35.1-46.3); Red Blood Cell Count 5.11 M/mm3 (4.30-5.90); White Blood Cell Count 8.69 K/mm3 (4.00-11.30)
[2022-05-26 15:37] LABS: Albumin, Blood 3.7 g/dL (3.4-5.0); Bilirubin, Total 0.5 mg/dL (0.1-1.0); Bun/Creatinine Ratio 17.5 (12.0-20.0); Calcium, Blood 8.8 mg/dL (8.5-10.1); Creatinine, Blood 1.14 mg/dL (0.60-1.20); Globulin, Blood 3.6 g/dL (2.2-4.0); Potassium, Blood 4.1 mmol/L (3.5-5.5); Total Protein, Blood 7.3 g/dL (6.4-8.2)
== END 2022-05-26 20:45 | disposition home or self-care (01) ==
LOC: ER 14:44
PROVIDERS: Physician Assistant
DX: E11.65 Type 2 diabetes mellitus with hyperglycemia (principal); I10 Essential (primary) hypertension; G47.30 Sleep apnea, unspecified; E78.5 Hyperlipidemia, unspecified; F17.220 Nicotine dependence, chewing tobacco, uncomplicated; Z79.899 Other long term (current) drug therapy; Z79.84 Long term (current) use of oral hypoglycemic drugs; Z79.01 Long term (current) use of anticoagulants
CPT/HCPCS: 36415; 80053; 82803; 82947; 83690; 85025; J1815; J7030

== ENCOUNTER → 2022-09-28 | Outpatient (CLI) | payer MEDICARE ==
[2022-09-30 13:13] LABS: COTININE Negative ng/mL (Cutoff=300)
== END ==
LOC: LAB 07:21 → LAB SHORT 07:21
PROVIDERS: Registered Nurse
DX: Z51.81 Encounter for therapeutic drug level monitoring (principal); Z01.812 Encounter for preprocedural laboratory examination; F17.221 Nicotine dependence, chewing tobacco, in remission

== ENCOUNTER 2023-02-22 15:11 | Emergency (ER) | payer MEDICARE ==
[~2023-02-22] VITALS: Ht 182.9 cm; Wt 167.8 kg
[2023-02-22 16:02] LABS: BASOPHILS ABSOLUTE AUTO 0.03 K/mm3 (0.00-0.23); BASOPHILS PERCENT AUTO 0 % (0-2); EOSINOPHILS ABSOLUTE AUTO 0.16 K/mm3 (0.00-0.68); EOSINOPHILS PERCENT AUTO 2 % (0-6); Hematocrit 45.6 % (37.0-53.0); Hemoglobin 15.7 g/dL (13.5-17.5); IMMATURE GRAN ABSOLUTE AUTO 0.03 K/mm3 (0.00-0.10); IMMATURE GRAN PERCENT AUTO 0 % (0-1); LYMPHOCYTES ABSOLUTE AUTO 3.79 K/mm3 (0.84-5.20); LYMPHOCYTES PERCENT AUTO 47 % (21-46); MONOCYTES ABSOLUTE AUTO 0.54 K/mm3 (0.16-1.47); MONOCYTES PERCENT AUTO 7 % (4-13); Mean Corpuscular HGB 29.7 pg (26.0-34.0); Mean Corpuscular HGB Conc 34.4 g/dL (31.5-36.5); Mean Corpuscular Volume 86 fL (80-100); Mean Platelet Volume 11.7 fL (9.1-12.4); NEUTROPHILS ABSOLUTE AUTO 3.53 K/mm3 (1.96-9.15); NEUTROPHILS PERCENT AUTO 44 % (41-73); Platelet Count 207 K/mm3 (150-400); RDW Coefficient Variation 12.2 % (11.7-14.2); RDW Standard Deviation 38.5 fL (35.1-46.3); Red Blood Cell Count 5.28 M/mm3 (4.30-5.90); White Blood Cell Count 8.08 K/mm3 (4.00-11.30)
[2023-02-22 16:37] LABS: Albumin, Blood 3.8 g/dL (3.4-5.0); Bilirubin, Total 0.4 mg/dL (0.1-1.0); Bun/Creatinine Ratio 16.6 (12.0-20.0); Calcium, Blood 9.1 mg/dL (8.5-10.1); Creatinine, Blood 0.9 mg/dL (0.60-1.20); Globulin, Blood 3.8 g/dL (2.2-4.0); Potassium, Blood 4.3 mmol/L (3.5-5.5); Total Protein, Blood 7.6 g/dL (6.4-8.2)
[2023-02-22] MEDS ORDERED: ALLOPURINOL100 M1 PO (17:48)
[2023-02-22] MEDS ORDERED: PRAV20 PO (17:49)
[2023-02-22 19:26] LABS: Source, Urine Clean Catch
[2023-02-22 19:35] LABS: Appearance, Urine Clear (Clear); Bilirubin, Urine Neg (Neg); Blood, Urine Neg (Neg); Color, Urine Yellow (P-Yellow); Glucose Qualitative, Urine 4+ (Neg); Ketones, Urine Neg (Neg); Leukocyte Esterase, Urine Neg (Neg); Nitrite, Urine Neg (Neg); Protein, Urine Neg (Neg); Specific Gravity, Urine 1.015 (1.003-1.022); Urobilinogen, Urine NORM (Normal)
[2023-02-22] MEDS ORDERED: CYCL10 PO (20:08)
[2023-02-22 20:13] VITALS: BP 145/74
== END 2023-02-22 20:14 | disposition home or self-care (01) ==
LOC: ER 15:11
PROVIDERS: Emergency Medicine; Physician Assistant
DX: G47.30 Sleep apnea, unspecified (principal); R07.89 Other chest pain; E11.65 Type 2 diabetes mellitus with hyperglycemia; I10 Essential (primary) hypertension; F17.220 Nicotine dependence, chewing tobacco, uncomplicated
CPT/HCPCS: 71046; 80053; 81003; 83880; 84484; 85025; 93005; 93010; 99285-25; J7030

== ENCOUNTER 2023-06-21 11:19 | Emergency (ER) | payer OTHER, MEDICARE ==
[~2023-06-21] VITALS: Ht 182.9 cm; Wt 154.2 kg
[~2023-06-21 11:19] MED LIST changes: +ALLOPURINOL100 M1 PO; +BASAGLAR K100 UNIT/1 SC; +PRAV20 PO
[2023-06-21 11:25] VITALS: BP 150/97
== END 2023-06-21 12:39 | disposition home or self-care (01) ==
LOC: ER 11:19
DX: M25.562 Pain in left knee (principal); M25.552 Pain in left hip; M25.532 Pain in left wrist; G89.29 Other chronic pain; M54.9 Dorsalgia, unspecified; I10 Essential (primary) hypertension; G47.30 Sleep apnea, unspecified; E11.9 Type 2 diabetes mellitus without complications; E78.5 Hyperlipidemia, unspecified; M10.9 Gout, unspecified; F17.220 Nicotine dependence, chewing tobacco, uncomplicated; Z79.899 Other long term (current) drug therapy; V89.2XXA Person injured in unspecified motor-vehicle accident, traffic, initial encounter; Z79.01 Long term (current) use of anticoagulants; Z79.84 Long term (current) use of oral hypoglycemic drugs
CPT/HCPCS: 72170; 73110; 73562-LT; 99284-25

== ENCOUNTER 2024-02-07 18:52 | Emergency (ER) | payer MEDICARE ==
[~2024-02-07] VITALS: Ht 182.9 cm; Wt 163.3 kg
[2024-02-07 20:19] VITALS: BP 170/92
[2024-02-07] MEDS ORDERED: AMOCLA875 PO (20:45)
[2024-02-07] MEDS ORDERED: PRED20 PO (20:45)
[2024-02-07] MEDS ORDERED: Amoxicillin/Clavulanate K 875 MG Tab PO ONE (20:50)
== END 2024-02-07 20:55 | disposition home or self-care (01) ==
LOC: ER 18:52
DX: H66.93 Otitis media, unspecified, bilateral (principal); H72.91 Unspecified perforation of tympanic membrane, right ear; I10 Essential (primary) hypertension; G47.30 Sleep apnea, unspecified; E11.9 Type 2 diabetes mellitus without complications; E78.5 Hyperlipidemia, unspecified; M10.9 Gout, unspecified; F17.220 Nicotine dependence, chewing tobacco, uncomplicated; Z79.84 Long term (current) use of oral hypoglycemic drugs; Z79.01 Long term (current) use of anticoagulants; Z79.899 Other long term (current) drug therapy; Z59.89 Other problems related to housing and economic circumstances
CPT/HCPCS: 99282; A9270

== ENCOUNTER → 2024-05-06 | Outpatient (CLI) | payer MEDICARE ==
[~2024-05-06] MED LIST changes: +AMOCLA875 PO
[2024-05-06 13:31] LABS: Microalb/Creat Ratio UR, Rand 14.903 mg/g (0.000-30.000); Microalbumin, Random Urine 23.1 mg/L (0.000-20.000)
== END ==
LOC: LAB 09:44 → LAB SHORT 09:44
PROVIDERS: Family Medicine
DX: E11.59 Type 2 diabetes mellitus with other circulatory complications (principal); Z79.4 Long term (current) use of insulin
CPT/HCPCS: 82043; 82570

== ENCOUNTER 2024-06-18 12:09 | Emergency (ER) | payer OTHER, MEDICARE ==
[~2024-06-18] VITALS: Ht 182.9 cm; Wt 151.9 kg
[2024-06-18 14:22] VITALS: BP 145/87
== END 2024-06-18 14:40 | disposition home or self-care (01) ==
LOC: ER 12:09
DX: M17.12 Unilateral primary osteoarthritis, left knee (principal); I10 Essential (primary) hypertension; E11.9 Type 2 diabetes mellitus without complications; E78.5 Hyperlipidemia, unspecified; F17.220 Nicotine dependence, chewing tobacco, uncomplicated; G47.30 Sleep apnea, unspecified; Z79.2 Long term (current) use of antibiotics; Z79.01 Long term (current) use of anticoagulants; Z79.899 Other long term (current) drug therapy; Z79.82 Long term (current) use of aspirin
CPT/HCPCS: 73562-LT; 99283-25

== ENCOUNTER 2025-02-17 13:01 | Inpatient (IN) | payer MEDICARE ==
[~2025-02-17] VITALS: Ht 182.9 cm; Wt 154.3 kg
[~2025-02-17 13:01] MED LIST changes: +LISINOPRIL (ZESTRIL) PO; +METFORMIN HCL1000 MG PO; -ZESTRIL40 M1 PO
[2025-02-17 13:45] LABS: BASOPHILS ABSOLUTE AUTO 0.04 K/mm3 (0.00-0.23); BASOPHILS PERCENT AUTO 0 % (0-2); EOSINOPHILS ABSOLUTE AUTO 0.20 K/mm3 (0.00-0.68); EOSINOPHILS PERCENT AUTO 2 % (0-6); Hematocrit 45.3 % (37.0-53.0); Hemoglobin 15.2 g/dL (13.5-17.5); IMMATURE GRAN ABSOLUTE AUTO 0.06 K/mm3 (0.00-0.10); IMMATURE GRAN PERCENT AUTO 1 % (0-1); LYMPHOCYTES ABSOLUTE AUTO 3.62 K/mm3 (0.84-5.20); LYMPHOCYTES PERCENT AUTO 35 % (21-46); MONOCYTES ABSOLUTE AUTO 1.01 K/mm3 (0.16-1.47); MONOCYTES PERCENT AUTO 10 % (4-13); Mean Corpuscular HGB Conc 33.6 g/dL (31.5-36.5); Mean Corpuscular Volume 90 fL (80-100); NEUTROPHILS ABSOLUTE AUTO 5.43 K/mm3 (1.96-9.15); NEUTROPHILS PERCENT AUTO 53 % (41-73); NRBC ABSOLUTE 0.00 K/mm3 (0.00-0.02); NRBC Auto 0.0 /100 WBC (0.0-0.2); Platelet Count 221 K/mm3 (150-400); RDW Coefficient Variation 12.6 % (11.7-14.2); RDW Standard Deviation 41.1 fL (35.1-46.3)
[2025-02-17 14:06] LABS: Alanine Aminotransfer (ALT/SGP 36.0 U/L (12-78); Albumin, Blood 3.6 g/dL (3.4-5.0); Albumin/Globulin Ratio 1.0 (0.8-1.8); Anion Gap 7.0 mmol/L (3-11); Aspartate Aminotrans (AST/SGOT 19.0 U/L (12-37); Bilirubin, Total 0.4 mg/dL (0.1-1.0); Blood Urea Nitrogen 17.0 mg/dL (8-24); CO2, Blood 26.0 mmol/L (21-32); Calcium, Blood 8.9 mg/dL (8.5-10.1); Chloride, Blood 106.0 mmol/L (98-108); Creatinine, Blood 1.33 mg/dL (0.60-1.20); Globulin, Blood 3.7 g/dL (2.2-4.0); Glucose, Blood 139.0 mg/dL (70-99); Potassium, Blood 4.1 mmol/L (3.5-5.5); Sodium, Blood 135.0 mmol/L (136-145); Total Protein, Blood 7.3 g/dL (6.4-8.2)
[2025-02-17] MEDS ORDERED: FLU VACC TS2025-26(6MOS UP)/PF 45 MCG/0.5 ML SYRINGE IM SCH (20:55)
[2025-02-17] MEDS ORDERED: Ondansetron HCl 2 MG / ML 2ML Vial IV PRN (20:55)
[2025-02-17] MEDS ORDERED: Albuterol 2.5 MG/3 ML VIAL INH PRN (21:00)
[2025-02-17 22:01] VITALS: BP 150/84
[2025-02-17] MEDS ORDERED: SPIR50 PO (22:16)
[2025-02-17] MEDS ORDERED: BACL20 PO (22:17)
[2025-02-17] MEDS ORDERED: Amaryl1 MG PO (22:18)
[2025-02-17] MEDS ORDERED: AMLODIPINE BESY10 MG PO (22:19)
[2025-02-17] MEDS ORDERED: EZET10 PO (22:20)
[2025-02-17] MEDS ORDERED: OZEMPIC0.25 MG/02 SC (22:22)
[2025-02-17] MEDS ORDERED: OZEMPIC0.25 MG/02 (22:23)
--- NOTE | 2025-02-17 23:40 | NUR ---
ADMIT NOTE REPORT RECEIVED BY THIS RN FROM ER JESS @ APPROX 2132 PT ARRIVED TO PCU 01 @ APPROX 2158, PT SELF TRANSFERED FROM ER BED TO PCU BED. PT ALERT AND HOLDING APPROPRIATE CONVERSATION, HR 30-40 S BUT OTHERWISE VSS.
[2025-02-17 23:48] VITALS: BP 128/67
[2025-02-18] VITALS (13 sets, daily range): BP systolic 115–163; BP diastolic 59–101
[2025-02-18 03:46] LABS: Hematocrit 42.9 % (37.0-53.0); Hemoglobin 14.6 g/dL (13.5-17.5); Mean Corpuscular HGB Conc 34.0 g/dL (31.5-36.5); Mean Corpuscular Volume 87 fL (80-100); NRBC ABSOLUTE 0.00 K/mm3 (0.00-0.02); NRBC Auto 0.0 /100 WBC (0.0-0.2); Platelet Count 208 K/mm3 (150-400); RDW Coefficient Variation 12.5 % (11.7-14.2); RDW Standard Deviation 40.0 fL (35.1-46.3)
[2025-02-18 04:33] LABS: Alanine Aminotransfer (ALT/SGP 31.0 U/L (12-78); Albumin, Blood 3.6 g/dL (3.4-5.0); Albumin/Globulin Ratio 1.1 (0.8-1.8); Anion Gap 10.0 mmol/L (3-11); Aspartate Aminotrans (AST/SGOT 11.0 U/L (12-37); Bilirubin, Total 0.4 mg/dL (0.1-1.0); Blood Urea Nitrogen 19.0 mg/dL (8-24); CO2, Blood 25.0 mmol/L (21-32); Calcium, Blood 8.7 mg/dL (8.5-10.1); Chloride, Blood 102.0 mmol/L (98-108); Creatinine, Blood 0.96 mg/dL (0.60-1.20); Globulin, Blood 3.4 g/dL (2.2-4.0); Glucose, Blood 118.0 mg/dL (70-99); Magnesium, Blood 2.0 mg/dL (1.6-2.4); Potassium, Blood 4.1 mmol/L (3.5-5.5); Sodium, Blood 133.0 mmol/L (136-145); Thyroid Stimulating Hormone 3.32 uIU/mL (0.360-4.800); Total Protein, Blood 7.0 g/dL (6.4-8.2)
--- NOTE | 2025-02-18 05:32 | NUR ---
MD NOTIFED PT OCCATIONANLY TOUCHING HR OF 29 NON SUSTAINING, HR 30-50'S, PT AYSMPTOMATIC OTHER VSS, DISCUSSED OPTIONS BUT NO NEW ORDERS AT THIS TIME, ZOLL OUTSIDE OF ROOM.
--- NOTE | 2025-02-18 05:58 | NUR ---
SHIFT SUMMARY PT A&O X 4, ABLE TO MAKE NEEDS KNOWN, CALLS APPROPRIATELY, REPOSITIONING SELF IN BED. CONTINUOUS SPO2, SPO2 GREATER THAN 92% RA, CPAP WHILE SLEEPING/ RT SET UP CPAP THIS SHIFT WITH AUTO 18-20 WITH RA, PT DENIES SOB T/O THIS SHIFT, NO SIGNS OF RESPIRATORY DISTRESS NOTED CONTINUOUS TELE MONITORING, SINUS WITH A FIRST DEGREE AND OCCASIONALLY FLIPS IN AND OUT OF A SECOND DEGREE TYPE 2 AND THIRD DEGREE BLOCK, HR 30-50 S/ OCCASIONALLY TOUGHING HR 29 AND REMAINS ASYMPTOMATIC/ NTOIFED, BP STABLE WITH MAP GREATER THAN 65, CAP REFILL WNL, PULSES PRESENT T/O, PT REPORTING INTERMITENT CHEST PAIN THAT COMES AND GOES/ PT DENIES IT BEING DIFFERENT OR WORSE THAN WHEN HE CAME IN/ PT EDUCATED TO CALL IF ANY SYMPTOMS CHANGE OR GET WORSE. BOWEL TONES PRESENT IN ALL 4Q, PT DENIES FEELINGS OF CONSTIPATION. VOIDING IND, URINE YELLOW. BED LOWEST POSITION, CALL LIGHT IN REACH, AWAITING TO GIVE REPORT TO ONCOMING RN.
[2025-02-18] MEDS ORDERED: Insulin Human Lispro 100 Units/ML 3ML Syringe SC SCH (07:30)
[2025-02-18] MEDS ORDERED: FENO54 PO (07:37)
[2025-02-18] MEDS ORDERED: JARDIANCE10 MG PO (07:40)
[2025-02-18] MEDS ORDERED: PRAVASTATIN SOD40 MG PO (07:43)
[2025-02-18] MEDS ORDERED: NITROGLYCERIN0.4 M3 SL (07:44)
[2025-02-18] MEDS ORDERED: MetFORMIN HCl 500 mg PO SCH (17:00)
--- NOTE | 2025-02-18 18:31 | NUR ---
SHIFT SUMMARY PT A&Ox4, CALLS AND COMMUNICATES NEEDS APPROPRIATELY. BP STABLE, GOING BETWEEN 1st-3rD DEGREE BLOCK 30-50's, REPORTS CP/PRESSURE AND SOB WHEN HR IN 30's. SpO2> 92% RA, DENIES SOB. IND IN ROOM. MANAGED CHRONIC PAIN PER EMAR. PT TO DILSHAD Antonio FOR PACER. NO OTHER EVENTS, WILL REPORT TO ONCOMING RN.
--- NOTE | 2025-02-18 22:30 | NUR ---
SPOKE WITH MD SPOKE WITH DR. SAN IN REGARDS TO ANTICOAGULATION MEDICATIONS FOR PT WITH HX OF AFIB WE ARE HOLDING HIS XERALTO AT THIS TIME FOR PLANS OF PACEMAKER PLACEMENT, PER MD WE ARE NOT TO START PT ON ANY ANTICOAGULATION SO LONG PT REMAINS IN SINUS RHYTHM.
[2025-02-19 03:44] VITALS: BP 111/57
--- NOTE | 2025-02-19 06:07 | NUR ---
SHIFT SUMMARY PT A&O X 4, ABLE TO MAKE NEEDS KNOWN, CALLS APPROPRIATELY, REPOSITIONING SELF IN BED. 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 BOWEL TONES PRESENT IN ALL 4Q, PT DENIES FEELINGS OF CONSTIPATION. VOIDING IND, URINE YELLOW. BED LOWEST POSITION, CALL LIGHT IN REACH, AWAITING TO GIVE REPORT TO ONCOMING RN.
[2025-02-19 08:36] VITALS: BP 129/85
[2025-02-19] MEDS ORDERED: Fenofibrate 67 MG Cap PO SCH (09:00)
--- NOTE | 2025-02-19 09:49 | NUR ---
ASSUMPTION OF CARE: ASSUMED CARE OF PATIENT. ASLEEP DURING SHIFT CHANGE REPORT. LYING SUPINE IN BED c HOB SLIGHTLY ELEVATED. BREATHING EVEN AND UNLABORED c ROOM AIR. MOST RECENT TELE STRIP IN CHART INTERPRETED SB @ 1AVB, PVC @ 44bpm. [facility]: ANTICIPATED TRANSFER DATE 02/23/24. BED IN LOWEST POSITION. CALL LIGHT WITHIN REACH. ACUTE NEEDS MET.
[2025-02-19 12:56] VITALS: BP 153/71
--- NOTE | 2025-02-19 15:24 | NUR ---
CALL FROM DR SAN: BED AVAILABLE [facility]. WILL TRANSFER TODAY. PT NOTIFIED. CHARGE, CAMMY, NOTIFIED, AND WILL INITIATE COBRA PROCESS.
[2025-02-19 15:54] VITALS: BP 153/71
--- NOTE | 2025-02-19 16:51 | NUR ---
DISCHARGE SUMMARY: A&Ox4. PLEASANT AND COOPERATIVE WITH CARE. CALLS APPROPRIATELY AND IS ABLE TO ADVOCATE NEEDS EFFECTIVELY. [facility]; IND AT BASELINE. CONTINENT OF BOWEL AND BLADDER; LBM 02/19/25. MEDS WHOLE c FLUIDS. TELE SINUS AMANUEL c 1AVB, PVC @ 44. MEDICATED PRN CHRONIC PAIN. COBRA TRANSFER TO [facility] FOR PACEMAKER PLACEMENT. VOICED UNDERSTANDING OF PLAN. LEFT FLOOR WITH ALL BELONGINGS AND COBRA PACKET, ESCORTED BY MEDICAL TRANSPORT. REPORT CALLED TO BALDEMAR AT [facility] ROOM #[id number] .
== END 2025-02-19 16:59 | disposition short-term general hospital (02) | DRG 281 ==
LOC: ER 13:01 → PCU 20:51
PROVIDERS: Emergency Medicine; Nurse Practitioner Acute Care; ADMIT Student in an Organized Health Care Education/Training Program
DX: I44.2 Atrioventricular block, complete (principal); F11.20 Opioid dependence, uncomplicated; I21.A1 Myocardial infarction type 2; Z68.42 Body mass index [BMI] 45.0-49.9, adult; E66.01 Morbid (severe) obesity due to excess calories; G47.33 Obstructive sleep apnea (adult) (pediatric); M10.9 Gout, unspecified; E78.5 Hyperlipidemia, unspecified; Z60.2 Problems related to living alone; I48.91 Unspecified atrial fibrillation; E11.9 Type 2 diabetes mellitus without complications; Z79.899 Other long term (current) drug therapy; Z23 Encounter for immunization; Z79.84 Long term (current) use of oral hypoglycemic drugs; Z79.51 Long term (current) use of inhaled steroids; Z79.2 Long term (current) use of antibiotics; Z79.52 Long term (current) use of systemic steroids; Z98.890 Other specified postprocedural states; Z87.19 Personal history of other diseases of the digestive system; Z79.01 Long term (current) use of anticoagulants; Z86.79 Personal history of other diseases of the circulatory system; Z75.1 Person awaiting admission to adequate facility elsewhere
CPT/HCPCS: 36415; 71045; 80053; 82947; 83735; 83880; 84443; 84484; 85025; 85027; 93005; 93010; 94660; 94762; 99285-25; A9270